=== PATIENT | male | born 1980 | race Caucasian/White ===

== ENCOUNTER 2017-08-24 21:00 | Emergency (ER) | payer MEDICAID, OTHER ==
[~2017-08-24] VITALS: Ht 182.9 cm; Wt 86.2 kg
[2017-08-24 21:12] VITALS: BP 122/79
[2017-08-24] MEDS ORDERED: IBUPROFEN 200 MG TABLET ONE (22:21)
[2017-08-24] MEDS ORDERED: IBUPROFEN 200 MG TABLET PO ONE (22:30)
== END 2017-08-24 22:48 | disposition other institution (70) ==
LOC: ED 22:40
DX: G89.11 Acute pain due to trauma (principal); M79.662 Pain in left lower leg; G89.29 Other chronic pain; M54.5 Low back pain; Z90.49 Acquired absence of other specified parts of digestive tract; X58.XXXA Exposure to other specified factors, initial encounter; Y93.89 Activity, other specified; Y99.8 Other external cause status; Y92.009 Unspecified place in unspecified non-institutional (private) residence as the place of occurrence of the external cause
CPT/HCPCS: 99284; 99285